=== PATIENT | male | born 1995 | race Two or more races ===

== ENCOUNTER 2022-07-18 16:08 | Emergency (ER) | payer SELFPAY ==
[2022-07-19 12:37] LABS: Syphilis Antibody Nonreactive (Nonreactive); Syphilis Antibody Index 0.06 S/CO (<1.00 Non-Reactive)
== END 2022-07-18 18:36 | disposition home or self-care (01) ==
LOC: ERS 16:08
DX: Z13.89 Encounter for screening for other disorder (principal)
CPT/HCPCS: 36415; 86780; 99283

== ENCOUNTER 2022-07-21 10:14 | Emergency (ER) | payer SELFPAY | END 2022-07-21 11:39 | disposition home or self-care (01) | LOC: ERS 10:14 | DX: Z20.2 Contact with and (suspected) exposure to infections with a predominantly sexual mode of transmission (principal); F17.290 Nicotine dependence, other tobacco product, uncomplicated | CPT/HCPCS: 99282 ==